=== PATIENT | male | born 1975 | race Caucasian/White ===

== ENCOUNTER 2024-05-13 01:09 | Day surgery (SDC) | payer BC, SELFPAY ==
[2024-05-08 11:51] VITALS: BMI 37.4
[2024-05-13 07:45] VITALS: BP 138/89; PULSE 89; RESP 18; TEMP 36.2; O2SAT 99
--- NOTE | 2024-05-13 07:52 | WPDANESEPPF ---
Anes - Initial Pre Proc Eval Procedure: Operation Date: 05/13/24 09:00 Proposed Procedures p Colonoscopy - Carlin Avina MD Date/Time: 05/13/24 07:52 Surgeon: Carlin Avina MD Pre Op Diagnosis: hx of colon polyps Patient Data Age: 48 Gender: M Height: 1.96 m Weight: 147.7 kg Last Vital Signs Temp 36.2 C L 05/13/24 07:45 Pulse 89 05/13/24 07:45 Resp 18 05/13/24 07:45 BP 138/89 05/13/24 07:45 Pulse Ox 99 05/13/24 07:45 O2 Del Method Room Air 05/13/24 07:45 Allergies Allergy/AdvReac Type Severity Reaction Status Date / Time No Known Allergies Allergy Verified 05/13/24 07:45 Home Medications ?Medication ?Instructions ?Recorded ?Confirmed ?Type metoprolol succinate 50 mg mg PO 05/08/24 History tablet,extended release 24 hr omeprazole 20 mg capsule,delayed mg 05/08/24 History release Patient hx anesthesia problems: none Family hx anesthesia problems: none Results Review: All pre-operative results and documents have been reviewed as part of the pre-operative evaluation. [facility] Past Medical History Medical History (Updated 05/13/24 @ 07:52 by Chun Munoz MD) Obesity ALESIA on CPAP Hernia GERD (gastroesophageal reflux disease) Surgical History Surgical History H/O hernia repair Social History Social History Smoking status: Never smoker Alcohol intake: current Drinks per week: 3 Alcohol use details: social Substance use: never Living arrangements: with family Spiritual care concerns: No Anes - Eval Final PreProcedure Day of Procedure 05/13/24 07:52 Patient weight: obese Heart: regular rate and rhythm Lungs: clear to auscultation Airway: Mallampati scale class II and other (jaw clicking/popping, underbite) Neurological: alert and oriented Last oral intake: >/= 8 hours ASA classification: III Emergent: no Anesthetic plan: proceed Anesthesia type and monitoring: general GIVS and standard monitoring Results Review: All pre-operative results and documents have been reviewed as part of the pre-operative evaluation. Informed Consent: The patient's anesthetic plan and its attendant risks and benefits were discussed with the patient/family/POA. Questions were solicited and answers provided to the satisfaction of the patient/family/POA.
[2024-05-13] MEDS: LACTATED RINGERS 1,000 ML 150 ML IV CONT (07:53)
--- NOTE | 2024-05-13 08:04 | PM.HPGS ---
History of Present Illness History of Present Illness Consent: Risks, benefits, and alternatives have been discussed and questions answered. Patient agrees to proceed with procedure. Chief complaint: hx of colon polyps Narrative: Say Dorado is a 48 year old male with colon polyp 4 years ago Review of Systems Review of Systems: All systems reviewed & are unremarkable except as noted in HPI and below PMFSH Past Medical History Medical History (Updated 05/13/24 @ 08:04 by Carlin Avina MD) Adenomatous colon polyp Obesity ALESIA on CPAP Hernia GERD (gastroesophageal reflux disease) Surgical History Surgical History H/O hernia repair Social History Social History Smoking status: Never smoker Alcohol intake: current Drinks per week: 3 Alcohol use details: social Substance use: never Living arrangements: with family Spiritual care concerns: No Meds Home Medications and Allergies Home Medications ?Medication ?Instructions ?Recorded ?Confirmed ?Type metoprolol succinate 50 mg mg PO 05/08/24 History tablet,extended release 24 hr omeprazole 20 mg capsule,delayed mg 05/08/24 History release Allergies Allergy/AdvReac Type Severity Reaction Status Date / Time No Known Allergies Allergy Verified 05/13/24 07:45 Vital Signs Vital Signs - 24 hr 05/13/24 07:45 Temperature 97.2 F L Pulse Rate 89 Respiratory Rate 18 Blood Pressure 138/89 Pulse Oximetry 99 Oxygen Delivery Room Air Exam Const: General: comfortable and no acute distress HENMT: Face/Nose/Sinus: Normal nares present Eyes: General: appearance normal, both eyes and all related structures Neck: Neck: no JVD Resp: Auscultation: clear to auscultation bilaterally Cardio: Rate: regular rate Rhythm: regular rhythm GI: Inspection: non-distended GI Palp: Yes Soft to palpation Skin: General skin exam: normal color Neuro: General: gait normal Speech: normal speech Extrem: General: normal to inspection Psych: Mental Status: mental status grossly normal Assessment and Plan Assessment and plan (1) Adenomatous colon polyp: Code(s): D12.6 - Benign neoplasm of colon, unspecified Status: Acute Assessment and Plan: colonoscopy
[2024-05-13 08:24] VITALS: BP 116/76; PULSE 75; RESP 18; O2SAT 100
[2024-05-13 08:34] VITALS: BP 118/73; PULSE 79; RESP 18; O2SAT 100
[2024-05-13 08:44] VITALS: BP 138/85; PULSE 80; RESP 18; O2SAT 100
== END 2024-05-13 08:51 | disposition home or self-care (01) ==
PROVIDERS: PCP Internal Medicine; Referring Provider Internal Medicine; Visit Provider Internal Medicine Gastroenterology
PROC: 0DJD8ZZ Inspection of Lower Intestinal Tract, Via Natural or Artificial Opening Endoscopic (ICD-10-PCS; CPT 45378; principal; 2024-05-13 09:00)
DX: Z12.11 Encounter for screening for malignant neoplasm of colon (principal); K63.5 Polyp of colon; K64.8 Other hemorrhoids; E66.9 Obesity, unspecified; Z68.38 Body mass index [BMI] 38.0-38.9, adult
CPT/HCPCS: 45380; 88305; J2003; J2704; J7120